=== PATIENT | female | born 1965 | race Caucasian/White ===

== ENCOUNTER 2019-02-11 10:10 | Emergency (ER) | payer BC ==
[~2019-02-11] VITALS: Ht 154.9 cm; Wt 68.9 kg
[2019-02-11 10:12] VITALS: Ht 154.9 cm; Wt 68.9 kg
[2019-02-11 13:31] VITALS: BP 115/78
== END 2019-02-11 13:31 | disposition home or self-care (01) ==
LOC: ED 10:10
DX: S52.502A Unspecified fracture of the lower end of left radius, initial encounter for closed fracture (principal); S52.612A Displaced fracture of left ulna styloid process, initial encounter for closed fracture; Z85.3 Personal history of malignant neoplasm of breast; V87.8XXA Person injured in other specified noncollision transport accidents involving motor vehicle (traffic), initial encounter; Y93.55 Activity, bike riding; Y92.488 Other paved roadways as the place of occurrence of the external cause; Y99.8 Other external cause status
CPT/HCPCS: 90715; J2001; J2270; J2405; Q0092